=== PATIENT | female | born 1935 | race Caucasian/White ===

== ENCOUNTER 2016-12-29 11:48 | Emergency (ER) | payer OTHER ==
[2016-12-29 11:59] VITALS: TEMP 97.7; BMI 33.6
--- NOTE | 2016-12-29 12:24 | PDOC ---
History of Present Illness - History of Present Illness Initial Comments: 12/29/16 12:17 81 yo F h/o HTN, NIDDM who presents with facial trauma. Pt. reports at 1110 AM she was at "[employer]" store and wasn't paying attention when she ran into side of building. She hit the right side of her forehead above the right eyebrow and has a laceration. Pt. arrived via EMS and local store workers called ambulance shortly after injury. Currently stable at bedside with gauze applied to area of injury. Not actively bleeding. She reports a controlled fall after the event where she sat down slowly. She denies headache, blurred vision, eye involvement of injury, N/V, neck pain/stiffness, LOC, dizziness. She normally ambulates with cane and denies OTC analgesia. Denies anticoagulation use. Denies prior history of face trauma. <Parmjit Noonan - Last Filed: 12/29/16 16:18> <Kenia Frausto - Last Filed: 12/30/16 16:06> - General Chief Complaint: Laceration Stated Complaint: FALL Time Seen by Provider: 12/29/16 12:03 Past History - Past Medical History Asthma: Yes Diabetes: Yes GI Disorders: Yes (ACID REFLUX) HTN: Yes Hypercholesterolemia: Yes - Psycho/Social/Smoking Cessation Hx Anxiety: No Suicidal Ideation: No Smoking Status: No Smoking History: Never smoked Have you smoked in the past 12 months: No Number of Cigarettes Smoked Daily: 0 Information on smoking cessation initiated: No Hx Alcohol Use: Yes (socially) Drug/Substance Use Hx: No Substance Use Type: Alcohol <Parmjit Noonan - Last Filed: 12/29/16 16:18> <Kenia Frausto - Last Filed: 12/30/16 16:06> - Past Medical History Allergies/Adverse Reactions: Allergies Allergy/AdvReac Type Severity Reaction Status Date / Time No Known Allergies Allergy Verified 04/08/13 16:29 Home Medications: Ambulatory Orders Atorvastatin Calcium 40 mg PO DAILY 12/29/16 Metformin HCl [Metformin HCl ER] 500 mg PO DAILY 12/29/16 Omeprazole Magnesium [Prilosec] 40 mg PO DAILY 12/29/16 Salmeterol/Fluticasone [Advair 500Mcg/50Mcg -] 1 inh IH DAILY 07/24/17 Triamterene/Hydrochlorothiazid [Triamterene-Hctz 37.5-25 mg Cp] 1 each PO DAILY 12/29/16 Review of Systems - Review of Systems Comments:: 12/29/16 12:24 GENERAL/CONSTITUTIONAL: No fever or chills. No weakness. HEAD, EYES, EARS, NOSE AND THROAT: + Face trauma/superior orbit. No change in vision. No ear pain or discharge. No sore throat. CARDIOVASCULAR: No chest pain or shortness of breath RESPIRATORY: No cough, wheezing, or hemoptysis. GASTROINTESTINAL: No nausea, vomiting, diarrhea or constipation. GENITOURINARY: No dysuria, frequency, or change in urination. MUSCULOSKELETAL: No joint or muscle swelling or pain. No neck or back pain. SKIN: No rash NEUROLOGIC: No headache, vertigo, loss of consciousness, or change in strength/ sensation. ENDOCRINE: No increased thirst. No abnormal weight change HEMATOLOGIC/LYMPHATIC: No anemia, easy bleeding, or history of blood clots. ALLERGIC/IMMUNOLOGIC: No hives or skin allergy. <Parmjit Noonan - Last Filed: 12/29/16 16:18> *Physical Exam - Vital Signs Last Vital Signs Temp Pulse Resp BP Pulse Ox 97.7 F 96 H 18 179/79 100 12/29/16 11:55 12/29/16 11:55 12/29/16 11:55 12/29/16 11:55 12/29/16 11:55 - Physical Exam Comments: 12/29/16 12:25 GENERAL: Awake, alert, and fully oriented, in no acute distress HEAD: 2 cm Vertical/open laceration right sided superior orbit/eyebrow. Absent debris. No exposure of muscle, or bone. Extends down into superficial dermis. , Normocephalic, EYES: PERRLA, EOMI, sclera anicteric, conjunctiva clear ENT: Auricles normal inspection, hearing grossly normal, nares patent, oropharynx clear without exudates. Moist mucosa NECK: Normal ROM, supple, no lymphadenopathy, JVD, or masses LUNGS: No distress, speaks full sentences, clear to auscultation bilaterally HEART: Regular rate and rhythm, normal S1 and S2, no murmurs, rubs or gallops, peripheral pulses normal and equal bilaterally. ABDOMEN: Soft, nontender, normoactive bowel sounds. No guarding, no rebound. No masses EXTREMITIES: Normal inspection, Normal range of motion, no edema. No clubbing or cyanosis. NEUROLOGICAL: Cranial nerves II through XII grossly intact. Normal speech, normal gait, no focal sensorimotor deficits SKIN: Warm, Dry, normal turgor, no rashes or lesions noted. <Parmjit Noonan - Last Filed: 12/29/16 16:18> - Vital Signs Last Vital Signs Temp Pulse Resp BP Pulse Ox 97.7 F 72 18 180/95 100 12/29/16 11:55 12/29/16 17:01 12/29/16 17:01 12/29/16 17:01 12/29/16 17:01 <Kenia Frautso - Last Filed: 12/30/16 16:06> Procedures - Laceration/Wound Repair Right Anterior Face Wound Length: to 2.5 cm (2.0 cm) Wound Explored: clean, no foreign body present Wound's Depth, Shape: superficial, linear Irrigated w/ Saline: No Anesthesia: 1% Lidocaine Wound Debrided: minimal Wound Repaired With: Sutures Suture Size/Type: 6:0, nylon Number of Sutures: 4 Layer Closure: Yes (subcutaneous ) Deep Layer Suture Size/Type: 4:0, vycril Number of Deep Layer Sutures: 3 Progress: 12/29/16 15:17 Applied topical Bacitracin. Did not apply gauze d/t location of wound. Pt. tolerated procedure well, + hemostasis. <Parmjit Noonan - Last Filed: 12/29/16 16:18> ED Treatment Course - RADIOLOGY Radiograph Interpretation: 12/29/16 16:44 EXAM#: TYPE/EXAM: RESULT: [id number] CT/HEAD CT WITHOUT CONTRAST HISTORY PROVIDED: Head trauma TECHNIQUE: Sequential axial images were obtained from the base of the skull to the vertex. There is no evidence of acute intracranial hemorrhage, mass lesions or infarctions. There is a mild to moderate degree of diffuse cerebral atrophy with sulcal widening and ventricular dilatation. Hypodense changes are noted within the periventricular white matter consistent with chronic, small vessel ischemia. There is no evidence of fracture or acute bony abnormalities. IMPRESSION: No evidence of acute intracranial pathology. Reported By: Denys Kang MD 12/29/16 2926 Parmjit Noonan <Parmjit Noonan - Last Filed: 12/29/16 16:18> Medical Decision Making - Medical Decision Making 12/29/16 14:19 81 yo F with h/o HTN, NIDDM who presents with facial trauma. Pt. ran into side of building and requires laceration repair of right sided brow/superior orbit. No other asx. symptoms. Laceration 2 cm vertically and requiring suture repair with subcutaneous and superficial repair. Minimal blood loss. ED Course: - Non Contrast CT Head - Suture repair 2 sutures subcutaneous (3.0 ) and 4 sutures superficial/ epidermis (6.0) nylon. 12/29/16 16:42 CT Head: No evidence of acute intracranial pathology. Discharge <Parmjit Noonan - Last Filed: 12/29/16 16:18> *DC/Admit/Observation/Transfer - Discharge Dispostion Admit: No - Attestations Physician Attestion: 12/29/16 15:19 I, Dr. Parmjit Noonan, attest that this document has been prepared under my direction and personally reviewed by me in its entirety. I further attest, that it accurately reflects all work, treatment, procedures and medical decision -making performed by me. <Parmjit Noonan - Last Filed: 12/29/16 16:18> <Kenia Frausto - Last Filed: 12/30/16 16:06> Diagnosis at time of Disposition: Facial laceration Qualifiers: Encounter type: initial encounter Qualified Code(s): S01.81XA - Laceration without foreign body of other part of head, initial encounter - Discharge Dispostion Disposition: HOME Condition at time of disposition: Improved - Referrals Referrals: Pillo Knight MD [Primary Care Provider] - - Patient Instructions Printed Discharge Instructions: DI for Laceration Repair Additional Instructions: Please keep area of repair dry. Avoid creams, lotion, or topical products. Return to ED for medical attention if you experience redness, streaking, or discharge at site of injury. Please follow up at ED in five day ( 01/03/2017) for suture removal. Print Language: BENGALI
--- NOTE | 2016-12-29 15:10 | PDOC ---
Attending Attestation - Resident Resident Name: Parmjit Noonan - ED Attending Attestation I have performed the following: I have examined & evaluated the patient, The case was reviewed & discussed with the resident, I agree w/resident's findings & plan, Exceptions are as noted - HPI HPI: 81 yo F presents s/p head injury. She states that she was not paying attention to what she was doing, slipped on wet floor, hit her head on building. No LOC, no weakness, no numbness, no headache. No other injuries. She sustained a laceration to the R eyebrow. It has been bleeding since, gauze was applied. No vision changes. She is not on any blood thinners. - Physicial Exam PE: GENERAL: Awake, alert, and fully oriented, in no acute distress HEAD: +Laceration to the R eyebrow, extending into subcutaneous fat. EYES: PERRLA, EOMI, sclera anicteric, conjunctiva clear ENT: Auricles normal inspection, hearing grossly normal, nares patent, oropharynx clear without exudates. Moist mucosa NECK: Normal ROM, supple, no lymphadenopathy, JVD, or masses LUNGS: Breath sounds equal, clear to auscultation bilaterally. No wheezes, and no crackles HEART: Regular rate and rhythm, normal S1 and S2, no murmurs, rubs or gallops ABDOMEN: Soft, nontender, normoactive bowel sounds. No guarding, no rebound. No masses EXTREMITIES: Normal range of motion, no edema. No clubbing or cyanosis. No cords, erythema, or tenderness NEUROLOGICAL: Cranial nerves II through XII grossly intact. Normal speech, normal gait SKIN: Warm, Dry, normal turgor, no rashes or lesions noted. - Medical Decision Making Laceration repaired as per procedure note. Will obtain CTH r/o ICH based on her age. If negative, will DC home.
[2016-12-29 17:02] VITALS: BP 180/95; PULSE 72
== END 2016-12-29 17:23 | disposition home or self-care (01) ==
LOC: JER 11:48
PROC: 0JQ10ZZ Repair Face Subcutaneous Tissue and Fascia, Open Approach (ICD-10-PCS; principal; 2016-12-29)
DX: S01.81XA Laceration without foreign body of other part of head, initial encounter (principal); W22.01XA Walked into wall, initial encounter; Y93.02 Activity, running; Y92.480 Sidewalk as the place of occurrence of the external cause
CPT/HCPCS: 12011-25; 70450-TC; 99283-25

== ENCOUNTER 2017-01-03 12:37 | Emergency (ER) | payer OTHER ==
[2017-01-03 12:41] VITALS: BP 161/97; PULSE 98; TEMP 98; BMI 33.6
--- NOTE | 2017-01-03 13:21 | PDOC ---
Suture Removal/Wound Check HPI - History of Present Illness Chief Complaint: Suture/Staple Removal(Here) Stated Complaint: SUTURE REMOVAL Time Seen by Provider: 01/03/17 12:54 History Source: Yes: Patient Exam Limitations: Yes: No Limitations [facility] Date of Last ED visit: 12/29/16 - Previous ED Treatment Type of procedure performed on last visit: Yes: Laceration Repair Tetanus Immunization: Yes: Up to Date - Onset of Previous Treatment Date of Occurence: 12/29/16 Past History - Past Medical History Allergies/Adverse Reactions: Allergies No Known Allergies Allergy (Verified 01/03/17 12:40) Home Medications: Ambulatory Orders Atorvastatin Calcium 40 mg PO DAILY 12/29/16 Metformin HCl [Metformin HCl ER] 500 mg PO DAILY 12/29/16 Omeprazole Magnesium [Prilosec] 40 mg PO DAILY 12/29/16 Salmeterol/Fluticasone [Advair 500Mcg/50Mcg -] 1 inh IH DAILY 12/29/16 Triamterene/Hydrochlorothiazid [Triamterene-Hctz 37.5-25 mg Cp] 1 each PO DAILY 12/29/16 General: Yes: arthritis (knees ), asthma, diabetes, hypertension, other ( peripheral neuropathy) - Social History Smoking History: No Smoking Status: Never smoked Number of Ciarettes Per Day: 0 Alcohol Use: occasionally Drug Use: none Suture Removal/Wound Check PE - Physical Exam Laceration/Wound Check Symptoms: reports: None Current Severity Level: None Maximum Severity Level: None Pain Localization: None Location of Laceration/Wound: right: Face (over rt. eyebrow,upper rt. eyelid) Pain Radiation: None *Review of Systems - Review of Systems Able to Perform ROS?: Yes Constitutional: No: Symptoms Reported HEENTM: No: Symptoms Reported Respiratory: No: Symptoms reported Cardiac (ROS): No: Symptoms Reported ABD/GI: No: Symptoms Reported : No: Symptoms Reported Musculoskeletal: No: Symptoms Reported Integumentary: Yes: Other (vertical suture line noted about from rt. upper eyelid through eyebrow with scabbing and eccymosis of rt. orbital area) Neurological: No: Symptoms reported Procedures - Consent Consent obtained: From Patient - Additional Procedures Progress: 01/03/17 13:18 'Wound cleansed with Betadine and normal saline 0.9% 4 interrupted sutures removed without complications wound edges well approximated. Dried and tiny amount of bacitracin ointment applied. No signs of infection Medical Decision Making - Medical Decision Making 01/03/17 13:19 Suture removal right upper eyelid and eyebrow area with no complications patient was sutured here on 12/25/2016 patient denies any pain to the area. Patient is up-to-date with her tetanus has had the last couple of years. Wound here healed well no signs of infection. Sutures removed without complication 4 interrupted Suture removal PLAN: 4 interrupted sutures without complication *DC/Admit/Observation/Transfer Diagnosis at time of Disposition: Visit for suture removal - Discharge Dispostion Disposition: HOME Condition at time of disposition: Stable - Referrals Referrals: Pillo Knight MD [Primary Care Provider] - - Patient Instructions Additional Instructions: You may wash area with antibacterial soap and water twice daily gently dry and apply tiny amount of bacitracin ointment until scab totally falls off Follow-up with your primary care provider within the next few days Patient voiced understanding of discharge instructions and all questions were answered - Post Discharge Activity
== END 2017-01-03 13:24 | disposition home or self-care (01) ==
LOC: JERFT 12:37
DX: Z48.02 Encounter for removal of sutures (principal)
CPT/HCPCS: 99281-25